=== PATIENT | male | born 1970 | race Caucasian/White ===

== ENCOUNTER 2023-08-25 05:39 | Day surgery (SDC) | payer OTHER ==
[2023-08-19 11:46] VITALS: BMI 25.7
[~2023-08-25 05:39] MED LIST: TRANEXAMIC 1,000 MG/100ML-NACL 1,000 MG in SALINE 1 100ML.BAG IVPB PRN
[2023-08-25] MEDS ORDERED: LACTATED RINGERS 1,000 ML IV SCH (06:12)
[2023-08-25] MEDS ORDERED: droPERidol 5 MG/2 ML VIAL IVP ONE (06:12)
[2023-08-25] MEDS ORDERED: DEXAMETHASONE SOD PHOSPHATE 4 MG/ML 1 ML VIAL IV ONE (06:12)
[2023-08-25] MEDS ORDERED: ONDANSETRON 4 MG/2 ML VIAL IVP ONE (06:12)
[2023-08-25] MEDS ORDERED: LIDOCAINE 1% (10MG/ML) FOR IV START INTRADERMA PRN (06:12)
[2023-08-25] MEDS ORDERED: MIDAZOLAM 2 MG/2 ML VIAL IVP ONE (06:57)
[2023-08-25] MEDS ORDERED: fentaNYL (PF) 50 MCG/ML 2 ML AMP IVP ONE (06:57)
[2023-08-25] MEDS ORDERED: HYDROmorphone 0.5 MG/0.5 ML SYRINGE IVP PRN (07:00)
[2023-08-25] MEDS ORDERED: NEOSTIGMINE 1 MG/ML 10 ML VIAL ONE (07:30)
[2023-08-25] MEDS ORDERED: fentaNYL (PF) 50 MCG/ML 2 ML AMP ONE (07:30)
[2023-08-25] MEDS ORDERED: ePHEDrine 50 MG/ML 1 ML VIAL ONE (07:30)
[2023-08-25] MEDS ORDERED: GLYCOPYRROLATE 0.2 MG/ML 2 ML VIAL ONE (07:30)
[2023-08-25] MEDS ORDERED: PROPOFOL 10 MG/ML 20 ML VIAL IV ONE (07:30)
[2023-08-25] MEDS ORDERED: ROCURONIUM 10 MG/ML (5 ML VIAL) IV ONE (07:30)
[2023-08-25] MEDS ORDERED: LIDOCAINE 1% INJ 10MG/ML (20 ML MDV) ONE (07:30)
[2023-08-25] MEDS ORDERED: PHENYLEPHRINE-0.9% NACL SYG 1,000 MCG/10 ML SYRINGE ONE (07:30)
[2023-08-25] MEDS ORDERED: ROPIVACAINE 5 MG/ML 30 ML VIAL ONE (07:30)
[2023-08-25] MEDS ORDERED: MIDAZOLAM 2 MG/2 ML VIAL ONE (07:30)
[2023-08-25] MEDS ORDERED: TRANEXAMIC 1,000 MG/100ML-NACL PREMIX BAG ONE (07:30)
[2023-08-25] MEDS ORDERED: LIDOCAINE 2%-EPI 1:100,000 20 ML VIAL SQ ONE (08:12)
[2023-08-25] MEDS ORDERED: LACTATED RINGERS 1,000 ML IV ONE ×2 (08:24)
[2023-08-25 09:32] VITALS: TEMP 97.2
[2023-08-25 10:05] VITALS: RESP 18
--- NOTE | 2023-08-25 10:08 | P.ANPRN ---
Procedure Note - Anesthesia - Nerve Block Performed Right Interscalene Single Time Out Performed: Yes ([id number]) Date of Procedure: 08/25/23 Procedure Start Time: 06:58 Procedure Stop Time: 07:02 Location of Patient: PreOp Indication: Acute Post-Operative Pain, Requested by Surgeon Specifically requested for management of pain by DrJune: Henrique Deal Sedation Type: Sedate with meaningful contact maintained Preparation: Sterile Prep Position: Supine Catheter: None Needle Types: Pajunk Needle Gauge: 21 Ultrasound used to visualize needle placement: Yes Ultrasound used to observe medication spread: Yes Injectate: 0.5% Ropivacaine (see comment for volume) (30cc) Blood Aspirated: No Pain Paresthesia on Injection Noted: No Resistance on Injection: Normal Image Stored and Saved: Yes Events: Uneventful and Well Tolerated
[2023-08-25 10:41] VITALS: BP 136/88; PULSE 75
--- NOTE | 2023-08-25 12:04 | OP ---
OPERATIVE REPORT DATE OF SERVICE : 08/25/2023 PHYSICAL CHEMISTRY TEACHER: Rodney Heard PA-C. PREOPERATIVE DIAGNOSES: 1. Right shoulder full-thickness rotator cuff tear. 2. Right shoulder medial subluxation, long head biceps tendon. 3. Right shoulder type 2-3 anterolateral acromial spur. 4. Right shoulder superior labral tear. POSTOPERATIVE DIAGNOSES: 1. Right shoulder full-thickness tear of the supraspinatus 2 cm x 2 cm. 2. Right shoulder medial subluxation intra-articular long head of the biceps tendon. 3. Right shoulder type 2-3 anterolateral acromial spur. 4. Right shoulder type 2 superior labral tear, tearing both anterior and posterior to the biceps anchor. PROCEDURES PERFORMED: 1. Right shoulder arthroscopic rotator cuff repair, 2 cm x 2 cm tear of the supraspinatus. 2. Right shoulder arthroscopic acromioplasty. 3. Right shoulder arthroscopic biceps tenodesis. 4. Right shoulder arthroscopic anterior, superior, and posterior labral debridement. ANESTHESIA: General. ESTIMATED BLOOD LOSS: Minimal. TOURNIQUET: None. DRAINS: None. COMPLICATIONS: None apparent. DISPOSITION: Postanesthesia care unit. EXAMINATION UNDER ANESTHESIA OF THE RIGHT SHOULDER: Elevation 160 degrees, external rotation at the side was to 60 degrees. External rotation at 90 degrees of abduction was to 90 degrees, internal rotation at 90 degrees of abduction was to 80 degrees. Sulcus less than 1 cm, anterior translation of the glenoid face, posterior translation of the glenoid face. ARTHROSCOPIC FINDINGS: Right shoulder: 1. Superior labrum: Type 2 superior labral tear, tearing both anterior and posterior to the biceps anchor. The biceps anchor was not intact. He had significant medial subluxation of the intra-articular portion of long head of the biceps tendon. This was draped over the superior rolled border of the subscapularis. The subscapularis did have an intact attachment to the lesser tuberosity. There is also partial tearing of the intra-articular portion of long head of the biceps tendon. 2. Anterior inferior labrum: Normal glenoid labral attachment. 3. Posterior labrum: Tearing of the posterior labrum from the 10 o'clock position to the 12 o'clock position on the glenoid face. 4. Humeral head cartilage was normal. 5. Rotator cuff large full-thickness tear of the supraspinatus, 2 cm x 2 cm. 6. Glenoid face cartilage was normal. 7. Subacromial space significant fraying of the undersurface of the coracoacromial ligament with a type 2-3 anterolateral acromial spur. INDICATIONS: Marco Antonio is a very pleasant 53-year-old male with right shoulder pain. He sustained an injury to the shoulder when he fell on the shoulder. He has noted weakness as well as significant pain in the shoulder. He has been through a fairly significant course of nonoperative treatment up to this point. Physical examination and MRI revealed tearing of the superior labrum, medial subluxation of long head of the biceps tendon as well as a large rotator cuff tear. At this point in time, he feels that he has failed nonoperative treatment and would like to proceed with operative intervention. A long discussion was held with the patient with regard to treatment options. The risks of procedure were all discussed in detail. These risks included, but are not limited to risk of infection, nerve damage, bleeding, pain, and a small risk of deep vein thrombosis which could lead to fatal pulmonary embolism. Further risks include lack of healing of rotator cuff and the possibility of biceps contour change with a biceps tenodesis. The patient understands the operation as well as the fact there is no guarantee of improvement of his symptoms. Appropriate informed consent was obtained. DESCRIPTION OF PROCEDURE: The patient was identified in the preoperative holding area. Surgical site was marked by both the patient and myself. He was given 2 g of Ancef IV for prophylactic purposes. He was then transported to the operative suite. He was placed supine on the operating room table. The patient was then intubated endotracheally and received general anesthesia throughout the operative procedure. Examination under anesthesia was then performed, and the findings were as noted above. The patient was then placed in the beach chair position well-padded in preparation for surgery. Great care was also taken to ensure that the cervical spine was in neutral alignment well-padded and maintained that way throughout the operative procedure. Great care was also taken to ensure that his legs were appropriately padded as well. The patient's right upper extremity was then prepped and draped in the usual sterile fashion. Standard surgical pause was undertaken to ensure that appropriate preoperative antibiotics were given and that we were operating the correct site. All staff in the room were in agreement, and we proceeded. The acromion as well as the AC joint, clavicle, and coracoid were marked with a surgical pen. The skin of the anticipated portal sites was also marked with a surgical pen. The skin of the anticipated portal sites was then injected with 0.25% Marcaine with epinephrine. I then proceeded to make the posterior portal. A 30-degree arthroscope was introduced into the glenohumeral joint through this portal. The arthroscopic pump pressure was set at 40 mmHg and maintained at that level throughout the entire case. Next, utilizing an 18-gauge spinal needle to help localize the placement, the anterior superior portal was made. This made just underneath the biceps tendon high in the rotator interval. A small blue 5.75 mm cannula was then placed, and the outflow was then done through this cannula. Diagnostic arthroscopy of the shoulder was then performed. The findings were as noted above. Great care was taken to probe superior labral complex as well as the biceps anchor. The biceps anchor was not firmly attached. He had significant tearing of the superior labrum. This was extended both anterior and posterior to the biceps anchor. The intra- articular portion of long head of the biceps tendon was medially subluxed out of the bicipital groove as well. It was draped over the superior rolled border of the subscapularis. The subscapularis did have an intact attachment to the lesser tuberosity. At this point, I proceeded with a biceps tenodesis. I utilized the Arthrex Loop N Tack tenodesis system. The loop suture was placed through the biceps and then cinched down. It was then taken a second time distally to the loop pass through the biceps. This was then brought out through the anterior portal. I then released the biceps near attachment on the supraglenoid tubercle. This was done utilizing ArthroCare wand. I then proceeded to debride the torn loose tissue of the superior labrum. This debrided anteriorly, superiorly, and posteriorly back to stable tissue. I inspected the rotator cuff from intra-articular. It did have a fairly large full- thickness tear of the supraspinatus. This tear was debrided very gently from intra- articular utilizing synovial shaver. At this point in time, no further work was deemed necessary from intra-articular. The arthroscope was removed from the glenohumeral joint and utilizing the same posterior skin incision was placed in the subacromial space. Next, utilizing an 18-gauge spinal needle to optimally localize the placement of a lateral portal was made under direct visualization. The subacromial bursectomy was then performed utilizing synovial shaver as well as the ArthroCare wand. There was significant fraying of the undersurface of the coracoacromial ligament. This was then taken down utilizing ArthroCare wand. This exposed underlying type 2-3 anterolateral acromial spur. I then proceeded with acromioplasty. Utilizing synovial shaver in a rhoda type fashion, the acromioplasty was completed. The acromioplasty was complete. The arthroscope was placed in the lateral portal and the shaver placed posteriorly to ensure that it was adequate and coplanar at the posterior aspect of the acromion. I then proceeded to repair the rotator cuff tear. It had a large full-thickness tear of the supraspinatus. It measured approximately 2 cm x 2 cm. The footprint of the greater tuberosity was then debrided of all devitalized tissue utilizing synovial shaver as well as the ArthroCare wand. I then performed a light decortication of the greater tuberosity utilizing synovial shaver in a rhoda-type fashion. This provided a nice bleeding surface to repair. I then placed small microfracture holes along the articular margin to again enhance the healing of the repair. I made a decision at this point to proceed with a double row equivalent Speed Bridge type repair. The Arthrex 4.75 mm BioComposite anchor loaded with a FiberTape suture was then placed in the most anteromedial aspect of the footprint. I did incorporate the tenodesis stitch into this anchor. This was looped through the eyelet of the anchor as well. This anchor was placed with an excellent purchase in bone. This provided effective tenodesis of the long head of the biceps tendon. The 2 limbs of the FiberTape were then shuttled through good quality rotator cuff tissue anteriorly utilizing a scorpion suture passer. These sutures were brought out through the anterior portal. I then placed a second BioComposite anchor, preloaded with a FiberTape suture in the most posteromedial aspect of the footprint. These FiberTapes were shuttled through good quality rotator cuff tendon and then shuttled out again through the most anterior portal. I then proceeded with placement of a lateral row. I started posteriorly. One limb of the posterior FiberTape and the most posterior limb of the anterior FiberTape was brought out through the lateral portal. The awl was placed in the most posterolateral aspect of the footprint. Again, a 4.75 mm BioComposite anchor was chosen. The sutures were tensioned appropriately and the anchor was placed with an excellent purchase of bone. These FiberTapes were cut and flushed with the anchor. The remaining anterior and posterior FiberTapes were brought out through the anterolateral portal. The awl was placed in the most anterolateral aspect of the footprint. Again, the FiberTape was shuttled through a 4.75 mm BioComposite anchor. They were tensioned appropriately and the anchor was then placed with an excellent purchase in bone. These sutures were also cut flush with the anchor. The repair was then evaluated with the arthroscope in the lateral portal. The rotator cuff was repaired down very nicely in the most lateral aspect of the footprint. It is a double row equivalent type repair. At this point in time, there was no further work deemed necessary. The shoulder was then thoroughly irrigated and drained with an outflow cannula. The arthroscopic equipment was removed from the shoulder. The arthroscopic portals were then closed with 3-0 nylon interrupted suture. A sterile compressive dressing was applied. The patient's right upper extremity was placed into a sling shot type rotator cuff immobilizer. All sponge and needle counts were deemed correct prior to closure. The patient tolerated the procedure without apparent complication. He was transferred to recovery room in stable condition. [facility] / IJN: [id number] /
== END 2023-08-25 10:44 | disposition home or self-care (01) ==
LOC: OR 05:39
PROVIDERS: ATTEND Orthopaedic Surgery Sports Medicine
DX: S43.001A Unspecified subluxation of right shoulder joint, initial encounter (principal); S43.431A Superior glenoid labrum lesion of right shoulder, initial encounter; M75.121 Complete rotator cuff tear or rupture of right shoulder, not specified as traumatic; F41.9 Anxiety disorder, unspecified; F10.90 Alcohol use, unspecified, uncomplicated; Z79.899 Other long term (current) drug therapy; Z87.891 Personal history of nicotine dependence; Z98.890 Other specified postprocedural states; X58.XXXA Exposure to other specified factors, initial encounter; W18.30XA Fall on same level, unspecified, initial encounter
CPT/HCPCS: 64415; 29827; 29828; 29826; C1713 ×3; J2250; J1100; J2710; J0690; J2405; J2001; J3010; J2795; J2704; J2371